=== PATIENT | female | born 1975 | race Caucasian/White ===

== ENCOUNTER 2017-06-15 10:50 | Observation (INO) | payer OTHER ==
[~2017-06-15] VITALS: Ht 160 cm; Wt 85.3 kg
[2017-06-15 10:50] VITALS: BP 120/69
[2017-06-15] MEDS ORDERED: RINGERS SOLUTION,LACTATED 1,000 ML IV SCH (11:45)
[2017-06-23] MEDS ORDERED: PREN1TAB80 PO (05:52)
== END 2017-06-15 13:25 | disposition home or self-care (01) ==
LOC: 4S 10:50
PROVIDERS: ADMIT Obstetrics & Gynecology; ATTEND Obstetrics & Gynecology
DX: O62.9 Abnormality of forces of labor, unspecified (principal); O26.893 Other specified pregnancy related conditions, third trimester; R10.30 Lower abdominal pain, unspecified; Z3A.37 37 weeks gestation of pregnancy
CPT/HCPCS: 59025; 76811; G0378; J7120; 96365

== ENCOUNTER 2017-06-23 05:54 | Inpatient (IN) | payer OTHER ==
[~2017-06-23] VITALS: Ht 160 cm; Wt 85.7 kg
[~2017-06-23 05:54] MED LIST: PREN1TAB80 PO; RINGERS SOLUTION,LACTATED 1,000 ML IV ONE
[2017-06-23] MEDS ORDERED: METOCLOPRAMIDE HCL 5 MG/ML 2 ML VIAL IVP ONE (06:00)
[2017-06-23] MEDS ORDERED: CITRIC ACID/SODIUM CITRATE 30 ML SOLUTION UDCUP PO ONE (06:00)
[2017-06-23 06:35] LABS: BASOPHILS % (AUTO) 0.6 % (0.0-2.0); HEMATOCRIT 36.7 % (36-46); HEMOGLOBIN 12.8 g/dL (12.0-16.0); LYMPHOCYTES # (AUTO) 2.3 K/uL (1.0-4.8); LYMPHOCYTES % (AUTO) 24.9 % (22.0-44.0); MEAN CORPUSCULAR HEMOGLOBIN 32.2 pg (26.0-34.0); MEAN CORPUSCULAR HGB CONC 34.8 G/dL (31.0-37.0); MEAN CORPUSCULAR VOLUME 92 fL (80-100); MONOCYTES # (AUTO) 0.8 K/uL (0.1-1.0); MONOCYTES % (AUTO) 8.4 % (2.0-9.0); NEUTROPHILS # (AUTO) 5.7 K/uL (1.8-7.7); NEUTROPHILS % (AUTO) 62.1 % (40.0-70.0); PLATELET COUNT (AUTO) 275 K/uL (150-450); RED BLOOD CELL COUNT(AUTO) 3.98 MIL/uL (4.00-5.20); WHITE BLOOD COUNT (AUTO) 9.2 K/uL (4.5-11.0)
[2017-06-23] MEDS ORDERED: CeFAZolin 2 GM/DEXTROSE 50 ML IV ONE (07:32)
[2017-06-23] MEDS ORDERED: MORPHINE SULFATE/PF 0.5 MG/ML 10 ML AMP ONE (07:32)
[2017-06-23] MEDS ORDERED: SODIUM CHLORIDE 0.9% 100 ML ONE (07:32)
[2017-06-23] MEDS ORDERED: RINGERS SOLUTION,LACTATED 1,000 ML IV ONE (07:32)
[2017-06-23] MEDS ORDERED: FentaNYL CITRATE-PF 100 MCG/2 ML VIAL ONE (07:32)
[2017-06-23] MEDS ORDERED: NALBUPHINE HCL 10 MG/ML VIAL IVP PRN ×3 (08:30)
[2017-06-23] MEDS ORDERED: PROMETHAZINE HCL 12.5 MG in SODIUM CHLORIDE 0.9% 50 ML IV PRN (08:30)
[2017-06-23] MEDS ORDERED: ONDANSETRON HCL 4 MG/2 ML VIAL IVP PRN ×2 (08:30)
[2017-06-23] MEDS ORDERED: DiphenhydrAMINE HCL 50 MG/ML VIAL IVP PRN ×2 (08:30)
[2017-06-23] MEDS ORDERED: ACETAMINOPHEN 1000 MG/ISO-OSM 100 ML IV PRN (08:30)
[2017-06-23] MEDS ORDERED: DiphenhydrAMINE HCL 50 MG/ML VIAL IM PRN (08:30)
[2017-06-23] MEDS ORDERED: ACETAMINOPHEN 1000 MG/ISO-OSM 100 ML IV ONE ×2 (08:30→09:57)
[2017-06-23] MEDS ORDERED: FentaNYL CITRATE-PF 100 MCG/2 ML VIAL IVP PRN ×4 (08:30)
[2017-06-23] MEDS ORDERED: NALOXONE HCL 0.4 MG/ML VIAL IVP PRN (08:30)
[2017-06-23] MEDS ORDERED: MEPERIDINE-PF 25 MG/ML SYRINGE IVP PRN (08:30)
[2017-06-23] MEDS ORDERED: DEXAMETHASONE SOD PHOS 4 MG/ML VIAL IVP PRN (08:30)
[2017-06-23] MEDS ORDERED: LANOLIN 7 GM OINTMENT TP PRN (09:15)
[2017-06-23] MEDS: DEXTROSE 5%-0.45% SODIUM CHL 1,000 ML IV SCH ×4 (09:24→20:20)
[2017-06-23] MEDS ORDERED: KETOROLAC TROMETHAMINE 30 MG/ML VIAL ONE (09:57)
[2017-06-23] MEDS: KETOROLAC TROMETHAMINE 30 MG/ML VIAL IVP PRN ×2 (09:59→16:47)
[2017-06-23 11:39] VITALS: BP 109/64
[2017-06-23] MEDS ORDERED: OXYGEN THERAPY IH SCH ×4 (20:00)
[2017-06-24] MEDS: IBUPROFEN 800 MG TABLET PO SCH ×4 (02:36→22:00)
[2017-06-24] MEDS ORDERED: ONDANSETRON HCL 4 MG/2 ML VIAL IVP ONE (07:21)
[2017-06-24] MEDS ORDERED: PHENYLEPHRINE HCL 10 MG/ML VIAL IVP ONE (07:21)
[2017-06-24] MEDS ORDERED: GLYCOPYRROLATE 0.2 MG/ML VIAL IM ONE (07:21)
[2017-06-24] MEDS ORDERED: EPHEDrine SULFATE 50 MG/ML VIAL IM ONE (07:21)
[2017-06-24] MEDS ORDERED: OXYTOCIN 10 UNITS/ML VIAL IM ONE (07:21)
[2017-06-24] MEDS: MAGNESIUM HYDROXIDE SUSPENSION 30 ML UDCUP PO SCH ×2 (08:22→22:02)
[2017-06-24] MEDS: ACETAMINOPHEN/CODEINE 300-30 MG TABLET PO PRN ×3 (11:03→22:01)
[2017-06-25] MEDS: ACETAMINOPHEN/CODEINE 300-30 MG TABLET PO PRN ×3 (05:23→21:35)
[2017-06-25] MEDS: IBUPROFEN 800 MG TABLET PO SCH ×3 (05:23→17:48)
[2017-06-25] MEDS: MAGNESIUM HYDROXIDE SUSPENSION 30 ML UDCUP PO SCH ×2 (08:28→21:35)
[2017-06-26] MEDS: IBUPROFEN 800 MG TABLET PO SCH ×3 (03:19→15:39)
[2017-06-26] MEDS: MAGNESIUM HYDROXIDE SUSPENSION 30 ML UDCUP PO SCH (09:00)
[2017-06-26] MEDS: ACETAMINOPHEN/CODEINE 300-30 MG TABLET PO PRN (13:14)
[2017-06-26] MEDS ORDERED: IBUP-2070 PO (14:30)
[2017-06-26] MEDS ORDERED: PERCT PO (14:30)
[2017-06-26] MEDS ORDERED: DSS100 PO (14:30)
== END 2017-06-26 15:50 | disposition home or self-care (01) | DRG 766 ==
LOC: 4S 05:54 → PREOBSVTOIN 06-25 05:59
PROVIDERS: ADMIT Obstetrics & Gynecology; ATTEND Obstetrics & Gynecology
PROC: 10D00Z1 Extraction of Products of Conception, Low, Open Approach (ICD-10-PCS; principal; 2017-06-23)
PROC: 0UL70ZZ Occlusion of Bilateral Fallopian Tubes, Open Approach (ICD-10-PCS; 2017-06-23)
DX: O66.5 Attempted application of vacuum extractor and forceps (principal); O09.513 Supervision of elderly primigravida, third trimester; Z37.0 Single live birth; Z3A.39 39 weeks gestation of pregnancy
CPT/HCPCS: 86850; 86900; 86901; 87081; 88302; J0131; J0690; J1885; J2274; J2370; J2405; J2590; J2765; J3010; J3490; J7050; J7120